=== PATIENT | female | born 2000 | race Caucasian/White ===

== ENCOUNTER 2019-08-01 18:51 | Emergency (ER) | payer BC, MEDICAID ==
[2019-08-01] MEDS ORDERED: Ondansetron 4 MG Tab.DIS PO ONE (20:51)
--- NOTE | 2019-08-01 20:55 | EDM.PDOC ---
ED HPI GENERAL MEDICAL PROBLEM - General Chief Complaint: Gastrointestinal Problem Stated Complaint: VOMITING, PAIN IN LOWER BACK Time Seen by Provider: 08/01/19 20:35 Source of Information: Reports: Patient, Family History Limitations: Reports: No Limitations - History of Present Illness INITIAL COMMENTS - FREE TEXT/NARRATIVE: 19-year-old female who was fine yesterday, developed nausea and vomiting this morning, mild increased urinary frequency and low back pain. She is been vomiting most of the day today, no fever and no diarrhea. No abdominal distention. She has a [id number] son who vomited all day yesterday. Onset: Unknown/Unsure (Woke up nauseated and has been vomiting all day) Location: Reports: Back (Main pain is her lower back) Worsens with: Reports: Other (Trying to eat something causes nausea) Associated Symptoms: Reports: Other (Also has a headache) Headache Pain Score (Numeric/FACES): 7 Lower Back Pain Score (Numeric/FACES): 7 - Related Data Allergies Allergy/AdvReac Type Severity Reaction Status Date / Time No Known Allergies Allergy Verified 06/20/19 22:48 Home Meds: Home Meds FLUoxetine HCl [Fluoxetine HCl] 10 mg PO DAILY 06/20/19 [History] Past Medical History HEENT History: Reports: Impaired Vision Gastrointestinal History: Reports: GERD 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 Denies: Fever, Chills HEENT: Reports: No Symptoms Respiratory: Denies: Shortness of Breath Cardiovascular: Denies: Chest Pain GI/Abdominal: Reports: Nausea, Vomiting. Denies: Abdominal Pain, Diarrhea : Reports: Frequency Musculoskeletal: Reports: Back Pain Skin: Reports: No Symptoms Neurological: Reports: Headache ED EXAM, GI/ABD - Physical Exam Exam: See Below Exam Limited By: No Limitations General Appearance: Alert, No Apparent Distress Eyes: Bilateral: Normal Appearance Head: Atraumatic Respiratory/Chest: No Respiratory Distress, Lungs Clear Cardiovascular: Regular Rate, Rhythm. No: Tachycardia GI/Abdominal Exam: Normal Bowel Sounds, Soft Back Exam: Other (Tender to palpation and percussion over the lumbar spine) Neurological: Alert, Oriented Psychiatric: No: Anxious Skin Exam: Warm, Dry Course - Vital Signs Last Recorded V/S: Last Vital Signs Temp 97.5 F 08/01/19 20:28 Pulse 95 08/01/19 20:28 Resp 16 08/01/19 20:28 BP 135/79 08/01/19 20:28 Pulse Ox 99 08/01/19 20:28 - Orders/Labs/Meds Labs: Laboratory Tests 08/01/19 Range/Units 21:19 Urine Color [place] A (YELLOW) Urine Appearance Clear (CLEAR) Urine pH 5.5 (5.0-8.0) Ur Specific [place] >= 1.030 (1.008-1.030) Urine Protein 30 H (NEGATIVE) mg/dL Urine Glucose (UA) Negative (NEGATIVE) mg/dL Urine Ketones 40 H (NEGATIVE) mg/dL Urine Occult Blood Trace-intact H (NEGATIVE) Urine Nitrite Negative (NEGATIVE) Urine Bilirubin Small H (NEGATIVE) Urine Urobilinogen 1.0 (0.2-1.0) EU/dL Ur Leukocyte Esterase Negative (NEGATIVE) Urine RBC 0-5 (0-5) Urine WBC 0-5 (0-5) Ur Epithelial Cells Many Amorphous Sediment Many Urine Bacteria Few Urine Mucus Not seen Meds: Medications Discontinued Medications Generic Name Dose Route Start Last Admin Trade Name Freq PRN Reason Stop Dose Admin Ondansetron HCl 4 mg 08/01/19 20:51 08/01/19 20:56 Zofran Odt PO 08/01/19 20:52 4 mg ONETIME ONE Administration - Re-Assessments/Exams Free Text/Narrative Re-Assessment/Exam: 08/01/19 20:54 Patient will be given 1 sublingual Zofran and we will obtain a UA. 08/01/19 21:37 UA returned showing no infection but she did have a urine concentration and ketones present. She felt better after the Zofran and had no additional vomiting. She will be discharged with 5 additional doses, and encouraged to drink small frequent amounts of water for hydration and recheck in 1 to 2 days if not improving satisfactorily. Departure - Departure Time of Disposition: 21:54 Disposition: Home, Self-Care 01 Clinical Impression: Dehydration, mild Nausea & vomiting Qualifiers: Vomiting type: unspecified Vomiting Intractability: non-intractable Qualified Code(s): R11.2 - Nausea with vomiting, unspecified - Discharge Information Instructions: Nausea and Vomiting, Adult Referrals: PCP,None [Primary Care Provider] - Forms: ED Department Discharge Care Plan Goals: Frequent small amounts of fluid will treat dehydration. Use sublingual Zofran every 4-6 hours for nausea or vomiting. Recheck in 1 to 2 days if not improving satisfactorily. Ibuprofen or Tylenol will help with body aches and headache. Sepsis Event Note - Evaluation Sepsis Screening Result: No Definite Risk - Focused Exam Vital Signs: Vital Signs Temp Pulse Resp BP Pulse Ox 08/01/19 20:28 97.5 F 95 16 135/79 99 08/01/19 20:27 97.5 F 95 16 135/79 99 Date Exam was Performed: 08/01/19 Time Exam was Performed: 22:23
== END 2019-08-01 21:42 | disposition home or self-care (01) ==
LOC: JP.ED 18:51
DX: R11.2 Nausea with vomiting, unspecified (principal); E86.0 Dehydration
CPT/HCPCS: 81001; 99284; A9270